=== PATIENT | male | born 1990 | race Asian ===

== ENCOUNTER 2019-10-15 06:10 | Day surgery (SDC) | payer OTHER ==
[~2019-10-15] VITALS: Ht 160 cm; Wt 72.6 kg
[2019-10-15 06:30] VITALS: BP 135/79
[2019-10-15 11:39] VITALS: BP 136/71
== END 2019-10-15 10:50 | disposition home or self-care (01) ==
LOC: DS 06:10 → OR 07:30 → DS 08:30 → OR 08:30 → DS 10:50
PROVIDERS: ATTEND Urology
DX: N47.1 Phimosis (principal); Z11.59 Encounter for screening for other viral diseases; E78.5 Hyperlipidemia, unspecified; I10 Essential (primary) hypertension; E11.9 Type 2 diabetes mellitus without complications; F41.9 Anxiety disorder, unspecified; Z79.899 Other long term (current) drug therapy; Z98.890 Other specified postprocedural states; Z79.84 Long term (current) use of oral hypoglycemic drugs
CPT/HCPCS: 82962; J0690; J3010; U0003-CS